=== PATIENT | female | born 1995 | race Caucasian/White ===

== ENCOUNTER 2017-01-29 23:53 | Emergency (ER) | payer OTHER ==
[~2017-01-29] VITALS: Ht 167.6 cm; Wt 109.0 kg
[2017-01-29] MEDS ORDERED: ETON68IM3 SD (23:59)
[2017-01-30 00:23] VITALS: BP 152/86
[2017-01-30] MEDS ORDERED: CEPHALEXIN MONOHYDRATE 500 MG CAPSULE PO ONE (00:45)
[2017-01-30] MEDS ORDERED: NEOMYCIN/POLYMYXIN B/HYDROCORT 10 ML OTIC SUSPENSION AS ONE (00:45)
[2017-01-30] MEDS ORDERED: ACETAMINOPHEN/CODEINE 300-30 MG TABLET PO ONE (00:45)
== END 2017-01-30 00:57 | disposition home or self-care (01) ==
LOC: EMS 23:55 → EDBD 23:55 → EMS 01-30 00:57
DX: H60.92 Unspecified otitis externa, left ear (principal)
CPT/HCPCS: 99284

== ENCOUNTER 2017-02-14 09:16 | Emergency (ER) | payer OTHER ==
[~2017-02-14] VITALS: Ht 167.6 cm; Wt 109.1 kg
[~2017-02-14 09:16] MED LIST: ETON68IM SQ; ETON68IM3 SD
[2017-02-14] MEDS ORDERED: CORTSUSP OT (09:28)
[2017-02-14 10:48] VITALS: BP 126/90
== END 2017-02-14 10:50 | disposition home or self-care (01) ==
LOC: EMS 09:17
DX: M25.511 Pain in right shoulder (principal); H60.92 Unspecified otitis externa, left ear; M54.2 Cervicalgia; Z02.89 Encounter for other administrative examinations
CPT/HCPCS: 93005; 99283

== ENCOUNTER 2018-11-11 16:09 | Emergency (ER) | payer OTHER ==
[~2018-11-11] VITALS: Ht 167.6 cm; Wt 90.9 kg
[~2018-11-11 16:09] MED LIST changes: +CORTSUSP OT
[2018-11-11] MEDS ORDERED: GUAIF10 PO (16:57)
[2018-11-11 19:23] LABS: BASOPHILS % (AUTO) 0.5 % (0.0-2.0); EOSINOPHILS % (AUTO) 2.3 % (1.0-6.0); HEMATOCRIT 44.7 % (36-46); HEMOGLOBIN 15.4 g/dL (12.0-16.0); LYMPHOCYTES # (AUTO) 2.1 K/uL (1.0-4.8); LYMPHOCYTES % (AUTO) 20.9 % (22.0-44.0); MEAN CORPUSCULAR HEMOGLOBIN 28.8 pg (26.0-34.0); MEAN CORPUSCULAR HGB CONC 34.3 G/dL (31.0-37.0); MEAN CORPUSCULAR VOLUME 84 fL (80-100); MONOCYTES # (AUTO) 1.1 K/uL (0.1-1.0); MONOCYTES % (AUTO) 10.7 % (2.0-9.0); NEUTROPHILS # (AUTO) 6.7 K/uL (1.8-7.7); NEUTROPHILS % (AUTO) 65.6 % (40.0-70.0); PLATELET COUNT (AUTO) 223 K/uL (150-450); RED BLOOD CELL COUNT(AUTO) 5.33 MIL/uL (4.00-5.20)
[2018-11-11] MEDS ORDERED: ALBUTEROL SULFATE 2.5 MG/0.5 ML NEB SOLUTION NEB ONE (19:30)
[2018-11-11] MEDS ORDERED: IPRATROPIUM BROMIDE 0.5 MG/2.5 ML NEB SOLUTION NEB ONE (19:30)
[2018-11-11 19:41] LABS: ANION GAP 10 mmol/L (8-16); CALCIUM, TOTAL 9.4 mg/dL (8.8-10.5); CARBON DIOXIDE 26 mmol/L (22-29); CHLORIDE 104 mmol/L (98-107); CREATININE 0.68 mg/dL (0.60-1.30); GLOMERULAR FILTR. RATE CALC > 60 mL/min (>60); GLUCOSE,RANDOM 93 mg/dL (70-110); POTASSIUM 3.4 mmol/L (3.5-5.1); SODIUM SERUM 140 mmol/L (136-145); UREA NITROGEN, BLOOD 11 mg/dL (7-18)
[2018-11-11 19:55] LABS: HCG,QUANTITATIVE < 1 mIU/mL (0-6)
[2018-11-11] MEDS ORDERED: ACETAMINOPHEN 500 MG TABLET PO ONE (20:15)
[2018-11-11 20:52] VITALS: BP 120/84
== END 2018-11-11 20:50 | disposition home or self-care (01) ==
LOC: EMS 16:11
DX: J20.9 Acute bronchitis, unspecified (principal); H92.03 Otalgia, bilateral; R19.7 Diarrhea, unspecified; M79.10 Myalgia, unspecified site
CPT/HCPCS: 94640

== ENCOUNTER 2021-03-01 08:43 | Emergency (ER) | payer OTHER ==
[~2021-03-01] VITALS: Ht 167.6 cm; Wt 104.5 kg
[~2021-03-01 08:43] MED LIST changes: -CORTSUSP OT; +GUAIF10 PO
[2021-03-01 08:46] VITALS: BP 115/75
== END 2021-03-01 10:02 | disposition left against medical advice (07) ==
LOC: EMS 08:51
DX: R05 Cough (principal); Z53.21 Procedure and treatment not carried out due to patient leaving prior to being seen by health care provider

== ENCOUNTER 2021-07-16 10:52 | Emergency (ER) | payer OTHER ==
[~2021-07-16] VITALS: Ht 165.1 cm; Wt 104.5 kg
[2021-07-16] MEDS ORDERED: LIDOCAINE/PF 1% 2 ML VIAL IM ONE (13:45)
[2021-07-16] MEDS ORDERED: CefTRIAXone SODIUM 1 GM/VIAL IM ONE (13:45)
[2021-07-16] MEDS ORDERED: DOXY-354 PO (15:01)
[2021-07-16 15:59] VITALS: BP 124/78
== END 2021-07-16 16:06 | disposition home or self-care (01) ==
LOC: EMS 10:54
DX: N72 Inflammatory disease of cervix uteri (principal)
CPT/HCPCS: 81025; 87210; 87491; 87591; 96372; 99284; J0696; J3490

== ENCOUNTER 2022-12-27 23:12 | Emergency (ER) | payer OTHER ==
[~2022-12-27] VITALS: Ht 167.6 cm; Wt 97.0 kg
[~2022-12-27 23:12] MED LIST changes: +DOXY-354 PO; -ETON68IM3 SD; +ETON68IM4 SD
[2022-12-27 23:21] VITALS: BP 127/70; PULSE 67; RESP 16; TEMP 100
[2022-12-27 23:40] LABS: APPEARANCE,URINE CLEAR (CLEAR); BILIRUBIN,URINE NEGATIVE (NEGATIVE); GLUCOSE, URINE (UA) NEGATIVE (NEGATIVE); KETONES,URINE NEGATIVE (NEGATIVE); LEUKOCYTE ESTERASE ,URINE NEGATIVE (NEGATIVE); NITRATE,URINE NEGATIVE (NEGATIVE); OCCULT BLOOD,URINE NEGATIVE (NEGATIVE); PH,URINE 7.5 (5.0-8.0); PROTEIN,URINE NEGATIVE (NEGATIVE); SPECIFIC GRAVITIY, URINE 1.011 (1.003-1.030); UROBILINOGEN,URINE <=1.0 mg/dL (<=1.0)
[2022-12-28] MEDS ORDERED: LEVOFLOXACIN 500 MG TABLET PO ONE (00:45)
[2022-12-28] MEDS ORDERED: AZITHROMYCIN 500 MG TABLET PO ONE (00:45)
== END 2022-12-28 00:48 | disposition home or self-care (01) ==
LOC: EMS 23:13
DX: R10.2 Pelvic and perineal pain (principal); Z20.2 Contact with and (suspected) exposure to infections with a predominantly sexual mode of transmission
CPT/HCPCS: 99283; 81003; 84703; 87491; 87591; Q9967

== ENCOUNTER 2023-02-26 17:38 | Emergency (ER) | payer OTHER ==
[~2023-02-26] VITALS: Ht 167.6 cm; Wt 97.7 kg
[2023-02-26 17:58] VITALS: BP 140/87; PULSE 98; RESP 16; TEMP 98
== END 2023-02-26 20:05 | disposition left against medical advice (07) ==
LOC: EMS 17:39
DX: R10.9 Unspecified abdominal pain (principal); Z53.21 Procedure and treatment not carried out due to patient leaving prior to being seen by health care provider
CPT/HCPCS: 99281; Z7502